=== PATIENT | male | born 1960 | race African-American/Black ===

== ENCOUNTER 2023-11-21 23:08 | Emergency (ER) | payer BC ==
[~2023-11-21] VITALS: Ht 193 cm; Wt 97.0 kg
[2023-11-21 23:38] VITALS: O2SAT 98
[2023-11-22 00:21] LABS: BASOPHILS % 0.7 % (0.0-2.0); EOSINOPHILS % 0.3 % (0.0-5.0); HEMATOCRIT. 35.3 % (42.0-52.0); HEMOGLOBIN. 11.5 g/dL (14.0-18.0); LYMPHOCYTES % 11.6 % (20.0-50.0); MEAN CORPUSCULAR HEMOGLOBIN 29.6 pg (28.0-32.0); MEAN CORPUSCULAR HGB CONC 32.6 g/dL (31.0-37.0); MEAN CORPUSCULAR VOLUME 90.5 fL (80.0-94.0); MEAN PLATELET VOLUME 7.3 fl (7.4-10.4); NEUTROPHILS % 78.4 % (40.0-76.0); PLATELET 326 x1000/uL (130-400); RED CELL DISTRIBUTION WIDTH 14.9 % (11.6-14.6); WHITE BLOOD COUNT 6.7 x1000/uL (4.5-11.0)
[2023-11-22 00:28] LABS: CHLORIDE 100 mEq/L (98-107); POTASSIUM 5.1 mEq/L (3.5-5.1); SODIUM 136 mEq/L (136-145)
[2023-11-22 00:29] LABS: CARBON DIOXIDE 32 mEq/L (21-32)
[2023-11-22 00:34] LABS: GLUCOSE 113 mg/dL (70-105)
[2023-11-22 00:35] LABS: UREA NITROGEN BLOOD 18 mg/dL (9-23)
[2023-11-22 03:08] LABS: CREATINE KINASE 114 IU/L (46-171)
[2023-11-22] MEDS: CEFTRIAXONE 1GM/50ML 50 ML IV ONE (03:11)
[2023-11-22] MEDS: VANCOMYCIN 1G PREMIX 200 ML IV ONE (03:33)
[2023-11-22 12:49] VITALS: BP 122/50; PULSE 48; RESP 17; TEMP 97.4
[2023-11-22] MEDS ORDERED: ONDANSETRON HCL 4MG/2ML INJ IV PRN (14:45)
[2023-11-22] MEDS ORDERED: KETOROLAC 15MG/ML VIAL IV PRN (14:45)
[2023-11-22] MEDS ORDERED: VANCOMYCIN 1.5GM/250ML IV NR (16:00)
[2023-11-23] MEDS ORDERED: VANCOMYCIN 1GM/200ML PMX (BAXTER) IV SCH (06:00)
[2023-11-23] MEDS ORDERED: CEFTRIAXONE 1GM/50ML 50 ML IV SCH (06:00)
== END 2023-11-22 15:13 | disposition left against medical advice (07) ==
LOC: ER 23:08 → UNDOADMIN 11-22 02:23 → 5WST 11-22 02:23 → EDBEDREQTM 11-22 02:30 → EDBEDREQ 11-22 02:30 → UNDODISIN 11-22 15:13
DX: L03.116 Cellulitis of left lower limb (principal); L03.115 Cellulitis of right lower limb
CPT/HCPCS: 99285; 96365; 93970; 80048; 82550; 85025; 87040; 36415; J3370; J0696